=== PATIENT | male | born 1965 | race Caucasian/White ===

== ENCOUNTER 2017-07-27 18:26 | Emergency (ER) | payer MEDICAID ==
--- NOTE | 2017-07-27 19:56 | EDPHY ---
H & P Time Seen by Provider: 07/27/17 19:18 HPI/ROS: CHIEF COMPLAINT: Alcohol intoxication HISTORY OF PRESENT ILLNESS: The patient is a 52-year-old male who presents emergency department via EMS and police after being found intoxicated. Patient reported drinking alcohol. When police approached in the became combative. He was subsequently restrained. When I evaluated the patient he states"I am in trouble."He has not have any other specific complaints. REVIEW OF SYSTEMS: Unable to obtain due the patient's altered mental status Past Medical/Surgical History: Unknown Past surgical history: Unknown Social history: The patient reports drinking alcohol. He denies drugs Smoking Status: Current every day smoker Physical Exam: Vitals noted GENERAL: Intoxicated appearing, in no acute distress, alert. HEENT: Eyes normal to inspection, normal pharynx, no signs of dehydration. NECK: No thyromegaly, no lymphadenopathy, supple. RESPIRATORY: Clear to auscultation bilaterally, no rales, rhonchi or wheezing. CVS: Regular rate and rhythm, no rubs, murmurs, or gallops. ABDOMEN: Soft, nontender, nondistended, no organomegaly. BACK: Normal to inspection, no CVA tenderness. SKIN: Normal color, no rash, warm, dry. No pallor. EXTREMITIES: No pedal edema, no calf tenderness, no Homans sign or cords, no joint swelling. NEURO/PSYCH: Alert and oriented x3, intoxicated appearing, normal motor sensory exam. No obvious cranial nerve deficit. Constitutional: Initial Vital Signs Temperature (C) 36.5 C 07/27/17 18:34 Heart Rate 78 07/27/17 18:34 Respiratory Rate 18 07/27/17 18:34 Blood Pressure 163/105 H 07/27/17 18:34 O2 Sat (%) 93 07/27/17 18:34 O2 Delivery Mode Room Air Allergies/Adverse Reactions: No Known Allergies Allergy (Unverified 10/21/15 10:28) Home Medications: Medication Instructions Recorded Hydrocodone/APAP 5/325 [Quinn 1 tab PO Q6 PRN #15 tab 10/21/15 5/325 (RX)] Medical Decision Making ED Course/Re-evaluation: In the emergency department I discussed the plan with the patient. I answered all his questions. Patient was recheck while here. His mental status improved. 2250: Patient was able to ambulate. He answer my questions. Patient is on an [facility]. He will be discharged to the [facility]. Differential Diagnosis: My differential includes but is not limited to alcohol intoxication, drug use, electrolyte abnormality, sugar abnormality, closed-head injury, subarachnoid hemorrhage, subdural hematoma, epidural hematoma, dehydration Departure - Departure Disposition: Home, Routine, Self-Care Clinical Impression: Alcoholic intoxication Qualifiers: Complication of substance-induced condition: uncomplicated Qualified Code(s): F10.920 - Alcohol use, unspecified with intoxication, uncomplicated Condition: Good Instructions: Alcohol Intoxication (ED) Additional Instructions: Return with worsening symptoms or any other concerns. Referrals: [facility] Detox 24 Hours [Outside] - As per Instructions [facility],. [Clinic] - As per Instructions
[2017-07-27 23:52] VITALS: BP 133/67
== END 2017-07-27 23:51 | disposition home or self-care (01) ==
LOC: EDUNIT#
DX: F10.920 Alcohol use, unspecified with intoxication, uncomplicated (principal); F17.200 Nicotine dependence, unspecified, uncomplicated